=== PATIENT | male | born 1945 | race Caucasian/White ===

== ENCOUNTER 2017-07-31 09:00 | Outpatient (RCR) | payer MEDICARE, SELFPAY ==
--- NOTE | 2017-07-09 12:54 | HP.OTEVAL ---
Patient's Visit Information MATTHEW MONTES DE OCA is a 72 year old M, referred to Occupational Therapy by DR.DDAVIS Cruz, with a diagnosis of bilateral hand pain. Date of Evaluation: 07/09/17 Occupational Therapist: ROBERTA Griffin/Zeyad, CHT - Subjective Subjective: Pt arrives to OT [facility] with and 20min late. Pt states for three years he has had pain in his hands and joints. He states he has been having diffcutly with pain in bilateral hands the more he uses them. 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 and his hand pain decreases his ind. with the tasks. He would like his pain to decrease and return to performing BADLS and IADL - Pain right hand 0 Pain Intensity Range: 0, 7 left hand 0 Pain Intensity Range: 0, 7, 9 - ROM ROM Comments: right. MCP IF 0/60 PIP 0/90 DIP 0/65. MCP MF 0/70 PIP 0/90 DIP 0/70. MCP RF 0/65 PIP -5/90 DIP 0/70. MCP LF 0/70 PIP 0/85 DIP 0/65. left. MCP IF 0/65 PIP -5/85 DIP 0/55. MCP MF 0/65 PIP -15/85 DIP 0/65. MCP RF 0/60 PIP -10/90 DIP 0/55. MCP LF 0/60 PIP -10/85 DIP 0/65 - Strength Flat Machine Cutter: right 40# left 45# Lateral Pinch: right 10# left 12# Tripod Pinch: right 8# left 6# - Sensation Sensation Comments: denies - DASH-Disabilities of Arm, Shoulder& Hand DASH Sum: 63 - Goals Goal:: PT will demo the ability to form composite fist to return to Ind. performance of BADLS and IADLS by d/c Goal:: PT will report pain no greater than 2/10 with use of bilateral hands for BADLs and IADLS by d/c Goal:: pt will demo understanding of joint protection and ad. eq. for pt to reach max ind. level with BADLS and IADLS - Rehabilitation General Assessment: Pt demo with decreased ability to form a composite fist and pain with daily occupations in her hands and other joints. pt demo need for ed. on joint protection and ad. eq. to decrease joint stress for pt to regain ind. with BADLS and IADLS. Pts symptoms similar to OA or RA would rec'd further testing. OT will focus on compensatory daja. Rehabilitation Potential: Good - Anticipated Interventions Anticipated Interventions: A/AAROM/PROM, Edema Control, Triggerpoint Release, Modalities, Orthoses, Joint Protection/Energy Conservation, Fine Motor Coord/Cesario, Home Program - Visit Plan Frequency: 2x /Week Duration: 4 Weeks General Plan: PT will be seen 2xweek for 4 weeks- therapy will focus on modalities to decrease pain increase understanding of joint protection and ad. eq to increase ind. with BADLS and IADLS TEXT: Thank you for the opportunity to evaluate your patient. For Medicare and Medicare HMO plans, please review the plan of care and approve it. It will need to be FAXED BACK to us at [phone] for Medicare purposes. Please let me know if there are questions or concerns regarding this plan of care. Physician Signature: Date:
--- NOTE | 2017-07-31 09:58 | HP.OTDCSUM_ITS ---
HP - OT D/C Summary It has been my pleasure to treat MATTHEW MONTES DE OCA under orders from DR.DDAVIS Cruz for the diagnosis of bilateral hand pain for a total of 7 visit (s). Please see the following information for a summary of their discharge status. - Overall Improvement % Improvement: 80 - Objective Objective/Function: pt demo the ability to from a composite fist with bilateral hands- pt demo functional ROM of all digits flex and ext. - Goals Patient Goals: Regain Mobility, Decrease Swelling/Stiffness, Improve Fine Motor Skills, Be More Independent in ADLS, Resume Former Household Responsibilities ( Cooking,Cleaning,Yard, etc.), Resume Hobbies Goal:: PT will demo the ability to form composite fist to return to Ind. performance of BADLS and IADLS by d/c Goal:: PT will report pain no greater than 2/10 with use of bilateral hands for BADLs and IADLS by d/c Goal:: pt will demo understanding of joint protection and ad. eq. for pt to reach max ind. level with BADLS and IADLS - Plan Plan: D/C - D/C Information If there are questions or concerns regarding this patient's occupational therapy , please fell free to call me at [phone]. Thank you for the referral of this patient. Sincerely, Joelle Pierre, OTR/L, CHT
--- NOTE | 2017-07-31 12:11 | HP.OTDCSUM_ITS ---
HP - OT D/C Summary It has been my pleasure to treat MATTHEW MONTES DE OCA under orders from DR.DDAVIS Cruz for the diagnosis of bilateral hand pain for a total of 7 visit (s). Please see the following information for a summary of their discharge status. - Overall Improvement % Improvement: 80 - Objective Objective/Function: pt demo the ability to from a composite fist with bilateral hands- pt demo functional ROM of all digits flex and ext. - Goals Patient Goals: Regain Mobility, Decrease Swelling/Stiffness, Improve Fine Motor Skills, Be More Independent in ADLS, Resume Former Household Responsibilities ( Cooking,Cleaning,Yard, etc.), Resume Hobbies Goal:: PT will demo the ability to form composite fist to return to Ind. performance of BADLS and IADLS by d/c Goal:: PT will report pain no greater than 2/10 with use of bilateral hands for BADLs and IADLS by d/c Goal:: pt will demo understanding of joint protection and ad. eq. for pt to reach max ind. level with BADLS and IADLS - Plan Plan: D/C - D/C Information Discharge Comments: Pt was seen in OT 7 sessions- tx inculded ed. pt on joint protction , ad. eq and work modification- pt demo the ability to form composite fist and reprots his pain has decreased-i don't have pain all the time. pt demo understanding of joint protection and ad. eq. also bought a paraffin bath to mtg stiffness and pain. pt D/C with HEP. If there are questions or concerns regarding this patient's occupational therapy , please fell free to call me at [phone]. Thank you for the referral of this patient. Sincerely, Joelle Pierre, OTR/L, CHT
== END 2017-07-31 13:23 | disposition home or self-care (01) ==
LOC: OT 09:00
PROVIDERS: Family Provider Internal Medicine; PCP Internal Medicine; Visit Provider Family Medicine
DX: M79.641 Pain in right hand (principal); M79.642 Pain in left hand
CPT/HCPCS: 97110; 97140; 97166; 97168; 97530

== ENCOUNTER 2020-07-13 08:13 | Outpatient (RCR) | payer MEDICARE, SELFPAY ==
[2017-03-13 09:14] VITALS: BMI 22.4
[2020-07-13] MEDS: COVID-19 VACC, MRNA(PFIZER)/PF 30 MCG/0.3 ML SYRINGE IM (16:35)
[2020-08-03] MEDS: COVID-19 VACC, MRNA(PFIZER)/PF 30 MCG/0.3 ML SYRINGE IM (16:12)
== END 2020-10-17 23:59 ==
LOC: IMMUN 08:13
PROVIDERS: PCP Internal Medicine; Referring Provider Family Medicine; Visit Provider Family Medicine
DX: Z23 Encounter for immunization (principal)
CPT/HCPCS: 0001A; 0002A; 91300

== ENCOUNTER 2024-05-03 11:30 | Outpatient (RCR) | payer MEDICARE, SELFPAY ==
--- NOTE | 2023-12-15 16:13 | HP.PTEVAL ---
Patient's Visit Information Visit Information Visit Information: MATTHEW MONTES DE OCA is a 78 year old M referred to Physical Therapy by BRAYDEN Tovar with a diagnosis of PD....neck/posture. Date of Evaluation: 12/15/23 Physical Therapist: ARGENTINA Love Visit Plan Frequency: 2x /Week Duration: 3 Months Plan: 2X/ week for 12 weeks for neck strengthening, postural exercises in both sitting and standing, neck AROM into all planes with proper mechanics (pt has trouble disassociating rotation vs sidebending) progressing to balance and balance testing once neck positioning is better with HEP and MT for stretching and deep tissue if needed. After a few weeks, will look more into balance but focus on neck strength/posture at this point HEP: use a mirror to work on more upright posture and work on SB to the R with neck retraction and then rotation to the R with neck retraction ( will help him with this). Subjective Subjective: Pt reports that he can not lift his head. His head was looked at by the neurologist and went through 1 month of PT for his neck with no change (they did stretches and some bands). They did work on his balance which did help. Neurologist would do Botox shots but not sure if it would make it worse. He is on Alzheimer's and PD meds. He is having hot flashes with the PD meds. He has Lewy body dementia and Parkinsonism. He only has pain when he looks up. They have bought collars and to some extent he has some relief with it. As far as PD he walks pretty good but there are times he has to use a walker. He does use the rollator at home at times. reports that he uses the rollator to steady himself. He does not get stuck. He has no trouble getting in and out of bed. He has steps to basement and it as 1 railing. He alternates going up and down the steps. No trouble out of bed. He has not fallen recently. He does not leave the house without his . He has double vision. He gets lightheaded when he goes to stand up. He watches TV, some light housework, laundry down in the basement. He would like Objective Objective: Gait: walks with a straight cane with head flexed, R rotation and L SB with shorter strides and looks at his ahead of him and the direction of how to walk. C-spine AROM: SB L 100%, SB R 25% from neutral (no SB to the R), Rot R 10%, Rot L 50%, Flex 100%, Ext less than neutral. Worked on getting head upright with teaching SB and ROtation and what the difference is. He does better with a mirror and can get closer to neutral with visual and tactile cues Pt has full shoulder AROM B Balance/Special Test Scores Lower Extremity Functional Score: 29 Goals Goal 1:: I HEP Goal Time Frame: 8-12 Weeks Goal 2:: Be able to sit with neck up in neutral posture on command in sitting Goal Time Frame: 8-12 Weeks Goal 3:: Be able to stand upright at a rollator with neck in more neutral posture in standing and maintain balance with standing and gait Goal Time Frame: 8-12 Weeks Goal 4:: Test Balance if needed once neck posture is better Goal Time Frame: 8-12 Weeks Goal 5:: Be able to drink from a cup without having to use a straw Goal Time Frame: 8-12 Weeks Rehabilitation Potential Rehabilitation Potential: Good Anticipated Interventions Patient/Client Instruction: Educate patient on: Condition and Plan of Care For the Purpose of:: To increase ROM, To improve nutrient delivery to tissue, To improve muscle performance and motor function, To improve ability to perform ADL's, To increase tolerance to activity/condition/position, To improve performance and independence with ADL's, To decrease level of supervision to perform tasks, To improve gait and locomotor functions, To improve health of tissue, To decrease soft tissue restriction, To increase flexibility/ROM, To improve endurance, To improve balance and To improve safety with gait Therapeutic Exercise to Include: Strength training, Endurance training, Balance training, Body mechanics, Postural training, Flexibilty training, Gait and locomotor training, Neuromotor development, Passive ROM, Active ROM and Scapular Strength/Stabilization For the Purpose of:: To decrease pain, To improve nutrient delivery to tissue, To improve muscle performance and motor function, To improve ability to perform ADL's, To increase tolerance to activity/condition/position, To improve performance and independence with ADL's, To decrease level of supervision to perform tasks, To improve ability of physical actions for home/community/work/leisure, To improve gait and locomotor functions, To improve health of tissue, To decrease soft tissue restriction, To increase flexibility/ROM, To improve endurance, To improve balance and To improve safety with gait Functional Training to Include: Gait training For the Purpose of:: To improve gait and locomotor functions and To improve safety with gait Manual Therapy Techniques to Include: Passive ROM and Soft tissue mobilization For the Purpose of:: To increase ROM, To improve nutrient delivery to tissue, To improve muscle performance and motor function, To improve ability to perform ADL's, To improve health of tissue and To decrease soft tissue restriction Text: Thank you for the opportunity to evaluate your patient. For Medicare and Medicare HMO plans, please review the plan of care and approve it. It will need to be FAXED BACK to us at [phone] for Medicare purposes. For Medicare only, by signing this I certify the plan of care. Please let me know if there are questions or concerns regarding this plan of care. Physician Signature: Date:
--- NOTE | 2024-01-13 11:29 | HP.PTREVAL_ITS ---
Re-Evaluation Intro: BRAYDEN Tovar, It has been my pleasure to treat MATTHEW MONTES DE OCA over the last 10 visits for PD....neck/posture. Please see the progress note below for an update on the physical therapy plan of care! 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 He does not feel that his neck is as tight...has more movement...not enough. He is doing more exercises at home. He is able to move his chair to look more up at the TV. He will work on a neck brace to put on if he is sleepy in a chair. He still uses a mirror at home to work on his posture. Objective Objective/Function: Sitting head posture: sits with L SB and R rotation. On command to sit with upright posture he is able to get his head more upright with more SB to the R and more neutral rotation. Pt is still tight on his L side of his neck Standing with a walker... He is not able to get his neck into more of an upright as much as in sitting and has to use his traps/core and other accessory muscles more to get not as near ROM Plan Plan Plan: Continue POC and at the end of each session start introducing some standing neck control 2X/ week for 12 weeks for neck strengthening, postural exercises in both sitting and standing, neck AROM into all planes with proper mechanics (pt has trouble disassociating rotation vs sidebending) progressing to balance and balance testing once neck positioning is better with HEP and MT for stretching and deep tissue if needed. After a few weeks, will look more into balance but focus on neck strength/posture at this point HEP: use a mirror to work on more upright posture and work on SB to the R with neck retraction and then rotation to the R with neck retraction ( will help him with this). Balance/Gait/Functional tests Balance/Special Test Scores Lower Extremity Functional Score: 47 Goals Goals Goal 1:: I HEP Goal Time Frame: 8-12 Weeks Goal Progress: Progressing Goal 2:: Be able to sit with neck up in neutral posture on command in sitting Goal Time Frame: 8-12 Weeks Goal 3:: Be able to stand upright at a rollator with neck in more neutral posture in standing and maintain balance with standing and gait Goal Time Frame: 8-12 Weeks Goal 4:: Test Balance if needed once neck posture is better Goal Time Frame: 8-12 Weeks Goal 5:: Be able to drink from a cup without having to use a straw Goal Time Frame: 8-12 Weeks Goal Progress: Progressing Anticipated Interventions Anticipated Interventions Patient/Client Instruction: Educate patient on: Condition and Plan of Care For the Purpose of:: To increase ROM, To improve nutrient delivery to tissue, To improve muscle performance and motor function, To improve ability to perform ADL's, To increase tolerance to activity/condition/position, To improve performance and independence with ADL's, To decrease level of supervision to perform tasks, To improve gait and locomotor functions, To improve health of tissue, To decrease soft tissue restriction, To increase flexibility/ROM, To improve endurance, To improve balance and To improve safety with gait Therapeutic Exercise to Include: Strength training, Endurance training, Balance training, Body mechanics, Postural training, Flexibilty training, Gait and locomotor training, Neuromotor development, Passive ROM, Active ROM and Scapular Strength/Stabilization For the Purpose of:: To decrease pain, To improve nutrient delivery to tissue, To improve muscle performance and motor function, To improve ability to perform ADL's, To increase tolerance to activity/condition/position, To improve p erformance and independence with ADL's, To decrease level of supervision to perform tasks, To improve ability of physical actions for home/community/work/leisure, To improve gait and locomotor functions, To improve health of tissue, To decrease soft tissue restriction, To increase flexibility/ROM, To improve endurance, To improve balance and To improve safety with gait Functional Training to Include: Gait training For the Purpose of:: To improve gait and locomotor functions and To improve safety with gait Manual Therapy Techniques to Include: Passive ROM and Soft tissue mobilization For the Purpose of:: To increase ROM, To improve nutrient delivery to tissue, To improve muscle performance and motor function, To improve ability to perform ADL's, To improve health of tissue and To decrease soft tissue restriction Re-Evaluation Ending Re-evaluation ending: Please do not hesitate to contact me at [phone] by phone or if you have questions or concerns regarding this new plan of care! Sincerely, ARGENTINA Love
--- NOTE | 2024-02-17 13:42 | HP.PTREVAL_ITS ---
Re-Evaluation Intro: BRAYDEN Tovar, It has been my pleasure to treat MATTHEW MONTES DE OCA over the last 19 visits for PD....neck/posture. Please see the progress note below for an update on the physical therapy plan of care! Subjective Subjective: His neck has been pretty good until today and today it is stiffer. Objective Objective/Function: C-spine posture: Able to get to neutral position with a little lift of his L shoulder to get him more central. Able to hold neutral for 20 seconds and then starts to lose for, C-spine AROM in sitting: R rotation 28 degrees and L 31 degrees R SB 13 degrees and L 38 degrees Pt in standing not able to get to neutral head position but improving. Pt able to have better neck ROM with back support. Plan Plan Plan: Continue POC and continue some standing neck control 2X/ week for 12 weeks for neck strengthening, postural exercises in both sitting and standing, neck AROM into all planes with proper mechanics (pt has trouble disassociating rotation vs sidebending) progressing to balance and balance testing once neck positioning is better with HEP and MT for stretching and deep tissue if needed. After a few weeks, will look more into balance but focus on neck strength/posture at this point HEP: use a mirror to work on more upright posture and work on SB to the R with neck retraction and then rotation to the R with neck retraction ( will help him with this). Balance/Gait/Functional tests Balance/Special Test Scores Lower Extremity Functional Score: 41 Goals Goals Goal 1:: I HEP Goal Time Frame: 8-12 Weeks Goal Progress: Progressing Goal 2:: Be able to sit with neck up in neutral posture on command in sitting Goal Time Frame: 8-12 Weeks Goal 3:: Be able to stand upright at a rollator with neck in more neutral posture in standing and maintain balance with standing and gait Goal Time Frame: 8-12 Weeks Goal 4:: Test Balance if needed once neck posture is better Goal Time Frame: 8-12 Weeks Goal 5:: Be able to drink from a cup without having to use a straw Goal Time Frame: 8-12 Weeks Goal Progress: Goal Met Anticipated Interventions Anticipated Interventions Patient/Client Instruction: Educate patient on: Condition and Plan of Care For the Purpose of:: To increase ROM, To improve nutrient delivery to tissue, To improve muscle performance and motor function, To improve ability to perform ADL's, To increase tolerance to activity/condition/position, To improve performance and independence with ADL's, To decrease level of supervision to perform tasks, To improve gait and locomotor functions, To improve health of tissue, To decrease soft tissue restriction, To increase flexibility/ROM, To improve endurance, To improve balance and To improve safety with gait Therapeutic Exercise to Include: Strength training, Endurance training, Balance training, Body mechanics, Postural training, Flexibilty training, Gait and locomotor training, Neuromotor development, Passive ROM, Active ROM and Scapular Strength/Stabilization For the Purpose of:: To decrease pain, To improve nutrient delivery to tissue, To improve muscle performance and motor function, To improve ability to perform ADL's, To increase tolerance to activity/condition/position, To improve performance and independence with ADL's, To decrease level of supervision to perform tasks, To improve ability of physical actions for home/community/work/l eisure, To improve gait and locomotor functions, To improve health of tissue, To decrease soft tissue restriction, To increase flexibility/ROM, To improve endurance, To improve balance and To improve safety with gait Functional Training to Include: Gait training For the Purpose of:: To improve gait and locomotor functions and To improve safety with gait Manual Therapy Techniques to Include: Passive ROM and Soft tissue mobilization For the Purpose of:: To increase ROM, To improve nutrient delivery to tissue, To improve muscle performance and motor function, To improve ability to perform ADL's, To improve health of tissue and To decrease soft tissue restriction Re-Evaluation Ending Re-evaluation ending: Please do not hesitate to contact me at [phone] by phone or if you have questions or concerns regarding this new plan of care! Sincerely, ARGENTINA Love
--- NOTE | 2024-05-03 13:14 | HP.PTDCSUM ---
Discharge Summary D/C summary: It has been my pleasure to treat MATTHEW MONTES DE OCA referred by BRAYDEN Tovar, with the diagnosis of PD....neck/posture for a total of 35 visit(s). Discharge Date: 05/03/24 Please see the following information for a summary of their discharge status. Subjective Subjective: Pt reports that his and him have been stretching some but not enough. Overall Improvement % Improvement: 60 Objective Objective/Function: Pt AROM and PROM is much improved. stressed importance of maintaining good posture especially when sleeping and keep up his stretching and MT with the help of his . Goals Goal 1:: I HEP Goal Progress: Goal Met Goal 2:: Be able to sit with neck up in neutral posture on command in sitting Goal Progress: Progressing Goal 3:: Be able to stand upright at a rollator with neck in more neutral posture in standing and maintain balance with standing and gait Goal Progress: Progressing Goal 4:: Test Balance if needed once neck posture is better Goal 5:: Be able to drink from a cup without having to use a straw Goal Progress: Goal Met Plan Plan: Pt to be seen 2 X / wwek for 2 weeks to teach how to stretch his neck at home and then see pt 1X/ week for 4 weeks to work on MT/Stretching and standing stretching as well. D/C Information Discharge Comments: DC PT to HEP d/c sentence: If there are questions or concerns regarding this patient's physical therapy, please feel free to call me at [phone]. Thank you for the referral of this patient. Sincerely, Marylou Mcmanus, MPT Balance/Gait/Functional tests Balance/Special Test Scores Lower Extremity Functional Score: 61 Improvement % Improvement: 60
== END 2024-05-03 19:00 | disposition home or self-care (01) ==
LOC: PT 11:30
PROVIDERS: PCP Internal Medicine; Referring Provider Internal Medicine; Visit Provider Internal Medicine
DX: G20.C Parkinsonism, unspecified (principal)
CPT/HCPCS: 97110; 97140; 97162; 97530